=== PATIENT | male | born 1980 | race Caucasian/White ===

== ENCOUNTER → 2021-11-08 | Outpatient (CLI) | payer BC, OTHER | LOC: LAB SHORT 14:28 → LAB FUT 11-06 15:15 | PROVIDERS: Family Medicine | DX: R93.7 Abnormal findings on diagnostic imaging of other parts of musculoskeletal system (principal); M89.8X5 Other specified disorders of bone, thigh | CPT/HCPCS: 81050 ==

== ENCOUNTER 2022-03-30 02:25 | Day surgery (SDC) | payer BC, OTHER ==
--- NOTE | 2022-03-30 08:52 | NUR ---
PT WAITED 15 MINUTES AFTER INJECTION, NO S/S OF REACTION. PT TO RETURN THE NEXT TWO DAYS FOR MORE INJECTIONS.
[2022-03-30] MEDS ORDERED: LORA10ER PO (09:50)
[2022-03-30] MEDS ORDERED: VITAMIN D5000 UNIT PO (09:51)
[2022-03-30] MEDS ORDERED: C COMPLEX1000 M1 PO (09:51)
[2022-03-30] MEDS ORDERED: ALBU8HFA2 INH (09:52)
[2022-03-30] MEDS ORDERED: RESVERATROL50 MG PO (09:53)
[2022-03-30] MEDS ORDERED: FERROUS GLUCON324 M2 PO (09:53)
== END 2022-03-30 08:52 | disposition home or self-care (01) ==
LOC: ATC 02:25
DX: C90.00 Multiple myeloma not having achieved remission (principal); I10 Essential (primary) hypertension; J45.909 Unspecified asthma, uncomplicated; G47.33 Obstructive sleep apnea (adult) (pediatric); Z01.818 Encounter for other preprocedural examination
CPT/HCPCS: 96372; J1447; Q5110

== ENCOUNTER 2022-03-31 13:21 | Day surgery (SDC) | payer BC, OTHER ==
[~2022-03-31 13:21] MED LIST: ALBU8HFA2 INH; C COMPLEX1000 M1 PO; FERROUS GLUCON324 M2 PO; LORA10ER PO; RESVERATROL50 MG PO; VITAMIN D5000 UNIT PO
== END 2022-03-31 13:32 | disposition home or self-care (01) ==
LOC: ATC 13:21
DX: C90.00 Multiple myeloma not having achieved remission (principal); G89.3 Neoplasm related pain (acute) (chronic); G62.0 Drug-induced polyneuropathy; I10 Essential (primary) hypertension; J45.909 Unspecified asthma, uncomplicated; G47.33 Obstructive sleep apnea (adult) (pediatric); C79.51 Secondary malignant neoplasm of bone
CPT/HCPCS: 96372; J1447; Q5110

== ENCOUNTER 2022-04-01 00:54 | Day surgery (SDC) | payer BC, OTHER | END 2022-04-01 13:46 | disposition home or self-care (01) | LOC: ATC 00:54 | DX: C90.00 Multiple myeloma not having achieved remission (principal); G89.3 Neoplasm related pain (acute) (chronic); G62.0 Drug-induced polyneuropathy; I10 Essential (primary) hypertension; J45.909 Unspecified asthma, uncomplicated; G47.33 Obstructive sleep apnea (adult) (pediatric); C79.51 Secondary malignant neoplasm of bone | CPT/HCPCS: 96372; J1447; Q5110 ==

== ENCOUNTER → 2022-12-18 | Outpatient (CLI) | payer BC, OTHER ==
[2022-12-18 18:01] LABS: BASOPHILS ABSOLUTE AUTO 0.04 K/mm3 (0.00-0.23); BASOPHILS PERCENT AUTO 1 % (0-2); EOSINOPHILS ABSOLUTE AUTO 0.12 K/mm3 (0.00-0.68); EOSINOPHILS PERCENT AUTO 2 % (0-6); Hematocrit 44.4 % (37.0-53.0); Hemoglobin 15.2 g/dL (13.5-17.5); IMMATURE GRAN ABSOLUTE AUTO 0.02 K/mm3 (0.00-0.10); IMMATURE GRAN PERCENT AUTO 0 % (0-1); LYMPHOCYTES PERCENT AUTO 20 % (21-46); MONOCYTES ABSOLUTE AUTO 0.75 K/mm3 (0.16-1.47); MONOCYTES PERCENT AUTO 12 % (4-13); Mean Corpuscular HGB Conc 34.2 g/dL (31.5-36.5); Mean Corpuscular Volume 90 fL (80-100); NEUTROPHILS ABSOLUTE AUTO 4.25 K/mm3 (1.96-9.15); NEUTROPHILS PERCENT AUTO 66 % (41-73); Platelet Count 274 K/mm3 (150-400); RDW Standard Deviation 39.8 fL (35.1-46.3); Red Blood Cell Count 4.91 M/mm3 (4.30-5.90); White Blood Cell Count 6.48 K/mm3 (4.00-11.30)
[2022-12-18 19:02] LABS: Albumin, Blood 4.6 g/dL (3.4-5.0); Bilirubin, Total 0.8 mg/dL (0.1-1.0); Bun/Creatinine Ratio 20.6 (12.0-20.0); Calcium, Blood 9.6 mg/dL (8.5-10.1); Creatinine, Blood 0.68 mg/dL (0.60-1.20); Globulin, Blood 2.3 g/dL (2.2-4.0); Potassium, Blood 3.7 mmol/L (3.5-5.5); Total Protein, Blood 6.9 g/dL (6.4-8.2)
== END | disposition home or self-care (01) ==
LOC: LAB SHORT 15:20 → LAB 15:20
PROVIDERS: Family Medicine
DX: I10 Essential (primary) hypertension (principal); G62.0 Drug-induced polyneuropathy
CPT/HCPCS: 80053; 83036; 85025

== ENCOUNTER → 2023-05-08 | Outpatient (CLI) | payer BC, OTHER ==
[2023-05-09 07:55] LABS: C DIFFICILE DNA NEGATIVE (Negative)
== END | disposition home or self-care (01) ==
LOC: LAB SHORT 11:30 → LAB 11:30
PROVIDERS: Family Medicine
DX: A09 Infectious gastroenteritis and colitis, unspecified (principal)
CPT/HCPCS: 87493

== ENCOUNTER → 2023-06-04 | Outpatient (CLI) | payer BC, OTHER ==
[2023-06-04 11:30] LABS: BASOPHILS ABSOLUTE AUTO 0.03 K/mm3 (0.00-0.23); BASOPHILS PERCENT AUTO 1 % (0-2); EOSINOPHILS ABSOLUTE AUTO 0.09 K/mm3 (0.00-0.68); EOSINOPHILS PERCENT AUTO 2 % (0-6); IMMATURE GRAN ABSOLUTE AUTO 0.02 K/mm3 (0.00-0.10); IMMATURE GRAN PERCENT AUTO 0 % (0-1); LYMPHOCYTES ABSOLUTE AUTO 1.07 K/mm3 (0.84-5.20); LYMPHOCYTES PERCENT AUTO 24 % (21-46); MONOCYTES ABSOLUTE AUTO 0.39 K/mm3 (0.16-1.47); MONOCYTES PERCENT AUTO 9 % (4-13); Mean Corpuscular HGB 31.3 pg (26.0-34.0); Mean Corpuscular HGB Conc 34.9 g/dL (31.5-36.5); Mean Corpuscular Volume 90 fL (80-100); Mean Platelet Volume 9.3 fL (9.1-12.4); NEUTROPHILS ABSOLUTE AUTO 2.96 K/mm3 (1.96-9.15); NEUTROPHILS PERCENT AUTO 65 % (41-73); Platelet Count 238 K/mm3 (150-400); RDW Coefficient Variation 11.9 % (11.7-14.2); White Blood Cell Count 4.56 K/mm3 (4.00-11.30)
[2023-06-04 13:20] LABS: Albumin, Blood 4.2 g/dL (3.4-5.0); Albumin/Globulin Ratio 1.6 (0.8-1.8); Bilirubin, Total 0.9 mg/dL (0.1-1.0); Bun/Creatinine Ratio 17.4 (12.0-20.0); Calcium, Blood 8.8 mg/dL (8.5-10.1); Creatinine, Blood 0.63 mg/dL (0.60-1.20); Globulin, Blood 2.6 g/dL (2.2-4.0); Potassium, Blood 4.1 mmol/L (3.5-5.5); Thyroid Stimulating Hormone 1.66 uIU/mL (0.360-4.800); Total Protein, Blood 6.8 g/dL (6.4-8.2)
== END | disposition home or self-care (01) ==
LOC: LAB SHORT 10:00 → LAB 10:00
PROVIDERS: Family Medicine
DX: I10 Essential (primary) hypertension (principal); G62.0 Drug-induced polyneuropathy
CPT/HCPCS: 80053; 84443; 85025

== ENCOUNTER → 2023-07-17 | Outpatient (CLI) | payer OTHER ==
[2023-07-19 11:05] LABS: C DIFFICILE DNA NEGATIVE (Negative)
== END ==
LOC: LAB SHORT 21:00 → LAB 21:00 → LAB FUT 05-02 16:00
PROVIDERS: Internal Medicine Hematology & Oncology
DX: C90.00 Multiple myeloma not having achieved remission (principal)
CPT/HCPCS: 87493

== ENCOUNTER → 2025-08-19 | Outpatient (CLI) | payer OTHER ==
[2025-08-19 17:12] LABS: C DIFFICILE DNA NEGATIVE (Negative)
[2025-08-23 22:53] LABS: OVA AND PARASITE,FECAL INTERP Negative (Negative)
== END ==
LOC: LAB 13:46 → LAB SHORT 13:46
PROVIDERS: Family Medicine
DX: I10 Essential (primary) hypertension (principal); A04.72 Enterocolitis due to Clostridium difficile, not specified as recurrent
CPT/HCPCS: 87177; 87209; 87493